=== PATIENT | male | born 1940 | race Hispanic/Latino ===

== ENCOUNTER 2022-05-15 21:40 | Emergency (ER) | payer OTHER ==
[~2022-05-15 21:40] MED LIST: Iopamidol 370 76% 100 ML VIAL ONE
[2022-05-15 22:02] LABS: #Basophils 0.1 thou/uL (0.0-0.2); #Eosinphils 0.4 thou/uL (0.0-0.7); #Monocytes 0.3 thou/uL (0.11-0.59); #Neutrophils 6.2 thou/uL (1.40-6.50); %Basophils 0.8 % (0.0-1.0); %Eosinophils 4.8 % (0.0-10.0); %Lymphocytes 12.5 % (21.0-51.0); Hemoglobin 13.3 g/dL (14.0-18.0); Mean Corpuscular HGB CONC 32.1 g/dL (32.0-36.0); Mean Corpuscular Hemoglobin 27.9 pg (27.0-31.0); Mean Corpuscular Volume 87.1 fL (78.0-98.0); Mean Platelet Volume 9.1 fL (7.4-10.4); Platelet Count 211 thou/uL (130-400); RBC Distribution Width 13.3 % (11.5-14.5); Red Blood Cell (RBC) Count 4.77 mill/uL (4.70-6.10); White Blood Cell (WBC) Count 7.9 thou/uL (4.8-10.8)
[2022-05-15] MEDS ORDERED: Boostrix 0.5 ML (Tdap) VIAL (>/=7 yrs of age) ONE (22:12)
[2022-05-15 22:19] LABS: ALT (SGPT) 42 U/L (8-55); AST (SGOT) 29 U/L (5-34); Albumin 4.1 g/dL (3.4-4.8); Alkaline Phosphatase 65 U/L (40-110); Anion Gap 16 mmol/L (10-20); BUN (Urea Nitrogen) 13 mg/dL (8.4-25.7); Bilirubin, Total 0.7 mg/dL (0.2-1.2); Calc. Creatinine Clearance 0 mL/min (70-130); Calcium 9.6 mg/dL (7.8-10.44); Carbon Dioxide 24 mmol/L (23-31); Chloride 108 mmol/L (98-107); Estimated GFR 75; Globulin 2.9 g/dL (2.4-3.5); Glucose 174 mg/dL (83-110); Lipase 16 U/L (8-78); Potassium 3.8 mmol/L (3.5-5.1); Sodium 144 mmol/L (136-145)
[2022-05-15 22:25] LABS: Troponin I 0.011 ng/mL (< 0.028)
== END 2022-05-15 23:58 | disposition home or self-care (01) ==
LOC: MADERS 21:40
DX: S13.4XXA Sprain of ligaments of cervical spine, initial encounter (principal); S16.1XXA Strain of muscle, fascia and tendon at neck level, initial encounter; S20.213A Contusion of bilateral front wall of thorax, initial encounter; X58.XXXA Exposure to other specified factors, initial encounter
CPT/HCPCS: 70450; 71260; 72125; 74177; 80053; 83690; 84484; 85025; 90471; 90715; 93005; Q9967